=== PATIENT | female | born 1985 | race Caucasian/White ===

== ENCOUNTER 2020-07-19 08:12 | Emergency (ER) | payer BC ==
[2020-07-19] MEDS ORDERED: Fentanyl 100 MCG/2 ML VIAL ONE ×2 (08:29→09:48)
[2020-07-19] MEDS ORDERED: Propofol 1,000 MG/100 ML VIAL IV ONE (09:14)
[2020-07-19] MEDS ORDERED: Propofol 500 MG/50 ML VIAL ONE ×2 (09:14→09:15)
[2020-07-19] MEDS ORDERED: PROPOFOL 0 ML ONE (09:15)
== END 2020-07-19 11:16 | disposition home or self-care (01) ==
LOC: ERS 08:12
DX: S52.502A Unspecified fracture of the lower end of left radius, initial encounter for closed fracture (principal); W18.30XA Fall on same level, unspecified, initial encounter
CPT/HCPCS: 25605; 96374; 96376; 99156; J2704; J3010

== ENCOUNTER 2020-07-20 09:38 | Outpatient (CLI) | payer BC ==
[2020-07-21 02:32] LABS: SARS-CoV-2 PCR by NAA Not Detected (NotDetected)
== END 2020-07-20 09:39 | disposition home or self-care (01) ==
LOC: LABBT 09:38
PROVIDERS: ATTEND Orthopaedic Surgery
DX: Z01.812 Encounter for preprocedural laboratory examination (principal); S52.502A Unspecified fracture of the lower end of left radius, initial encounter for closed fracture; Z20.822 Contact with and (suspected) exposure to COVID-19
CPT/HCPCS: 87635; U0003; U0005

== ENCOUNTER 2020-07-22 06:13 | Day surgery (SDC) | payer OTHER, BC ==
[2020-07-21 10:39] VITALS: BMI 38.7
[2020-07-22] MEDS ORDERED: Midazolam HCl 2 mg/2 ml Vial ONE (06:43)
[2020-07-22] MEDS ORDERED: Fentanyl 100 MCG/2 ML VIAL ONE ×2 (06:43→09:10)
[2020-07-22] MEDS ORDERED: PROPOFOL 200 MG/20 ML VIAL ONE (07:34)
[2020-07-22] MEDS ORDERED: Ropivacaine 0.5% HCl/PF (150 MG/30 ML VIAL) ONE (07:34)
[2020-07-22] MEDS ORDERED: Ropivacaine 2% HCl/PF (20 MG/10 ML VIAL) ONE (07:34)
[2020-07-22] MEDS ORDERED: Dexamethasone 20 MG/5 ML VIAL ONE (07:34)
[2020-07-22] MEDS ORDERED: Ondansetron PF 4 MG/2 ML Vial ONE (07:34)
[2020-07-22] MEDS ORDERED: Lidocaine 1% PF 5 ML VIAL ONE (07:34)
[2020-07-22] MEDS ORDERED: ePHEDrine Sulfate 50 MG/10 ML VIAL ONE (07:34)
[2020-07-22] MEDS ORDERED: Meperidine HCl/PF 25 MG/ML VIAL ONE (08:49)
[2020-07-22] MEDS ORDERED: traMADol HCl 50 MG TAB PO PRN ×2 (09:00)
[2020-07-22] MEDS ORDERED: Ondansetron PF 4 MG/2 ML Vial IVP PRN (09:00)
[2020-07-22] MEDS ORDERED: HYDROcodone/Acetaminophen 5/325 mg Tablet PO PRN ×2 (09:00)
[2020-07-22] MEDS ORDERED: Ropivacaine 0.2% 550 ML 550 ML NERVE BLCK SCH (09:00)
[2020-07-22] MEDS ORDERED: Zolpidem Tartrate 5 MG TAB PO PRN (09:00)
[2020-07-22] MEDS ORDERED: Promethazine HCl 25 MG/ML VIAL IM PRN (09:00)
[2020-07-22] MEDS ORDERED: Ketorolac Tromethamine 30 MG/ML VIAL ONE (09:10)
[2020-07-22] MEDS ORDERED: Ketorolac Tromethamine 30 MG/ML VIAL IVP PRN (09:18)
== END 2020-07-22 11:20 | disposition home or self-care (01) ==
LOC: SDC 06:13
PROVIDERS: ATTEND Orthopaedic Surgery
PROC: 0PSJ04Z Reposition Left Radius with Internal Fixation Device, Open Approach (ICD-10-PCS; principal; 2020-07-22)
DX: S52.532A Colles' fracture of left radius, initial encounter for closed fracture (principal); K52.9 Noninfective gastroenteritis and colitis, unspecified; J45.909 Unspecified asthma, uncomplicated; R73.03 Prediabetes; Z79.899 Other long term (current) drug therapy; Z87.891 Personal history of nicotine dependence; W19.XXXA Unspecified fall, initial encounter
CPT/HCPCS: 76000; A4306; C1713; J0690; J1100; J1885; J2175; J2250; J2405; J2704; J2795; J3010

== ENCOUNTER 2020-11-17 | Outpatient (CLI) | payer BC | END 2020-11-17 15:26 | disposition home or self-care (01) ==

== ENCOUNTER 2021-02-01 08:52 | Emergency (ER) | payer BC ==
[2021-02-01] MEDS ORDERED: diphenhydrAMINE 50 MG/ML VIAL ONE (10:16)
[2021-02-01] MEDS ORDERED: Acetaminophen 500 MG TAB ONE (10:16)
[2021-02-01] MEDS ORDERED: Metoclopramide HCl 10 MG/2 ML VIAL ONE (10:16)
== END 2021-02-01 11:59 | disposition home or self-care (01) ==
LOC: ERS 08:52
DX: R51.9 Headache, unspecified (principal); I10 Essential (primary) hypertension; Z79.899 Other long term (current) drug therapy
CPT/HCPCS: 96374; J1200; J2765